=== PATIENT | female | born 1975 | race Caucasian/White ===

== ENCOUNTER 2021-08-18 02:41 | Day surgery (SDC) | payer BC ==
[~2021-08-18] VITALS: Wt 111.8 kg
[~2021-08-18 02:41] MED LIST: ALBU90OI; ASCO500 PO; CALC1.25T PO; CEFD300 PO; CLAR500; CLIN300 PO; CRUTCH4 USE; CYCL10 PO; Colace100 MG PO; DOCU100 PO; FERR325 PO; FOLI1 PO; Ferrous Sulfat325 MG PO; HYDACE5 PO; HYDACE5325 PO; IBUP800 PO; LIDO2L MM; MEDR10 PO; METTREX2.5 PO; MONT10T PO; PSEU120ER PO; PSEU30 PO; QUET100 PO; RXCYCL10 PO; RXHYDACE PO; SULTRIDS PO; TRAZ50 PO
[2021-08-18] MEDS ORDERED: Methotrexa25 MG/1 ML INJ (09:26)
[2021-08-18] MEDS ORDERED: QUETIAPINE FUM200 M7 PO (09:28)
[2021-08-18] MEDS ORDERED: FOLI1 PO (09:28)
[2021-08-18] MEDS ORDERED: DICLOFENAC SOD100 G1 TOP (09:29)
[2021-08-18] MEDS ORDERED: ZOFRAN4 MG PO (09:29)
[2021-08-18] MEDS ORDERED: Hydroxychloroq200 MG PO (09:30)
[2021-08-18] MEDS ORDERED: CITALOPRAM HBR PO (09:31)
== END 2021-08-18 12:17 | disposition home or self-care (01) ==
LOC: ATC 02:41
DX: M06.9 Rheumatoid arthritis, unspecified (principal); J45.909 Unspecified asthma, uncomplicated; Z79.899 Other long term (current) drug therapy; Z88.0 Allergy status to penicillin; Z88.8 Allergy status to other drugs, medicaments and biological substances; Z88.5 Allergy status to narcotic agent
CPT/HCPCS: 96413; 96415; J7050; Q5103

== ENCOUNTER 2021-09-03 00:27 | Day surgery (SDC) | payer BC ==
[~2021-09-03] VITALS: Wt 112.9 kg
[~2021-09-03 00:27] MED LIST changes: +CITALOPRAM HBR PO; +DICLOFENAC SOD100 G1 TOP; +Hydroxychloroq200 MG PO; +Methotrexa25 MG/1 ML INJ; +QUETIAPINE FUM200 M7 PO; +ZOFRAN4 MG PO
== END 2021-09-03 12:10 | disposition home or self-care (01) ==
LOC: ATC 00:27
DX: M06.9 Rheumatoid arthritis, unspecified (principal); J45.909 Unspecified asthma, uncomplicated; Z88.0 Allergy status to penicillin; Z88.8 Allergy status to other drugs, medicaments and biological substances; Z88.5 Allergy status to narcotic agent
CPT/HCPCS: 96413; 96415; A9270; J7050; Q5103

== ENCOUNTER 2022-03-26 02:54 | Day surgery (SDC) | payer BC, OTHER ==
[~2022-03-26 02:54] MED LIST changes: +INFLECTRA100 MG IV
[2022-03-26] MEDS ORDERED: CIPROFLOX-DEXA7.5 ML BOTHEARS (08:22)
--- NOTE | 2022-03-26 08:33 | NUR ---
PT DECLINES HER PRE MEDS THIS MORNING.
== END 2022-03-26 11:10 | disposition home or self-care (01) ==
LOC: ATC 02:54
DX: M06.9 Rheumatoid arthritis, unspecified (principal)
CPT/HCPCS: 96413; 96415; J1745; J7050

== ENCOUNTER 2022-05-21 00:49 | Day surgery (SDC) | payer OTHER ==
[~2022-05-21 00:49] MED LIST changes: +CIPROFLOX-DEXA7.5 ML BOTHEARS
[2022-05-26 04:07] LABS: QUANTIFERON MITOGEN VALUE >10.00 IU/mL (.); QUANTIFERON NIL VALUE 0.06 IU/mL (.); QUANTIFERON TB1 AG VALUE 0.09 IU/mL (.); QUANTIFERON TB2 AG VALUE 0.07 IU/mL (.); QUANTIFERON-TB GOLD PLUS Negative (Negative)
== END 2022-05-21 11:50 | disposition home or self-care (01) ==
LOC: ATC 00:49
PROVIDERS: Internal Medicine Rheumatology
DX: M06.9 Rheumatoid arthritis, unspecified (principal)
CPT/HCPCS: 86480; 96413; 96415; A9270; J7050; Q5103

== ENCOUNTER 2022-07-16 00:11 | Day surgery (SDC) | payer BC, OTHER | END 2022-07-16 11:54 | disposition home or self-care (01) | LOC: ATC 00:11 | DX: M06.9 Rheumatoid arthritis, unspecified (principal); M54.2 Cervicalgia; J45.909 Unspecified asthma, uncomplicated; Z88.0 Allergy status to penicillin; Z88.5 Allergy status to narcotic agent; Z88.8 Allergy status to other drugs, medicaments and biological substances; Z79.899 Other long term (current) drug therapy | CPT/HCPCS: 96413; 96415; A9270; J7050; Q5103 ==

== ENCOUNTER 2022-09-10 03:49 | Day surgery (SDC) | payer OTHER ==
[~2022-09-10] VITALS: Wt 109.6 kg
[2022-09-10 08:42] LABS: BASOPHILS ABSOLUTE AUTO 0.03 K/mm3 (0.00-0.23); BASOPHILS PERCENT AUTO 1 % (0-2); EOSINOPHILS ABSOLUTE AUTO 0.17 K/mm3 (0.00-0.68); EOSINOPHILS PERCENT AUTO 3 % (0-6); Hematocrit 39.2 % (33.0-51.0); Hemoglobin 13.7 g/dL (11.5-16.0); IMMATURE GRAN ABSOLUTE AUTO 0.01 K/mm3 (0.00-0.10); IMMATURE GRAN PERCENT AUTO 0 % (0-1); LYMPHOCYTES ABSOLUTE AUTO 1.69 K/mm3 (0.84-5.20); LYMPHOCYTES PERCENT AUTO 30 % (21-46); MONOCYTES ABSOLUTE AUTO 0.23 K/mm3 (0.16-1.47); MONOCYTES PERCENT AUTO 4 % (4-13); Mean Corpuscular HGB 29.3 pg (26.0-34.0); Mean Corpuscular HGB Conc 34.9 g/dL (31.5-36.5); Mean Corpuscular Volume 84 fL (80-100); Mean Platelet Volume 10.8 fL (9.1-12.4); NEUTROPHILS ABSOLUTE AUTO 3.53 K/mm3 (1.96-9.15); NEUTROPHILS PERCENT AUTO 62 % (41-73); Platelet Count 287 K/mm3 (150-400); RDW Coefficient Variation 12.8 % (11.7-14.2); RDW Standard Deviation 38.8 fL (35.1-46.3); Red Blood Cell Count 4.67 M/mm3 (3.80-5.20); White Blood Cell Count 5.66 K/mm3 (4.00-11.30)
[2022-09-10 09:01] LABS: Albumin, Blood 3.3 g/dL (3.4-5.0); Albumin/Globulin Ratio 0.7 (0.8-1.8); Bilirubin, Total 0.5 mg/dL (0.1-1.0); Bun/Creatinine Ratio 6.8 (12.0-20.0); C-REACTIVE PROTEIN, EXT RANGE 1.39 mg/dL (0.000-0.300); Calcium, Blood 8.7 mg/dL (8.5-10.1); Creatinine, Blood 0.88 mg/dL (0.40-1.00); Globulin, Blood 4.9 g/dL (2.2-4.0); Potassium, Blood 4.2 mmol/L (3.5-5.5); Total Protein, Blood 8.2 g/dL (6.4-8.2)
== END 2022-09-10 10:39 | disposition home or self-care (01) ==
LOC: ATC 03:49
PROVIDERS: Internal Medicine Rheumatology
DX: M05.79 Rheumatoid arthritis with rheumatoid factor of multiple sites without organ or systems involvement (principal); D84.821 Immunodeficiency due to drugs; J45.909 Unspecified asthma, uncomplicated; Z79.631 Long term (current) use of antimetabolite agent; Z88.0 Allergy status to penicillin; Z88.8 Allergy status to other drugs, medicaments and biological substances; Z88.5 Allergy status to narcotic agent; Z79.620 Long term (current) use of immunosuppressive biologic
CPT/HCPCS: 80053; 85025; 85651; 86140; 96413; 96415; A9270; J7050; Q5103

== ENCOUNTER 2022-11-05 01:19 | Day surgery (SDC) | payer OTHER ==
[~2022-11-05] VITALS: Wt 111.9 kg
== END 2022-11-05 17:30 | disposition home or self-care (01) ==
LOC: ATC 01:19
DX: M05.79 Rheumatoid arthritis with rheumatoid factor of multiple sites without organ or systems involvement (principal)
CPT/HCPCS: 96413; 96415; A9270; J7050; Q5103

== ENCOUNTER 2023-05-13 01:07 | Day surgery (SDC) | payer OTHER ==
[~2023-05-13 01:07] MED LIST changes: +HYDR1TAB94 PO; +PRED20 PO
[2023-05-13 08:06] VITALS: BP 162/91
== END 2023-05-13 10:49 | disposition home or self-care (01) ==
LOC: ATC 01:07
DX: M05.79 Rheumatoid arthritis with rheumatoid factor of multiple sites without organ or systems involvement (principal); M54.2 Cervicalgia
CPT/HCPCS: 96413; 96415; J7050; Q5103

== ENCOUNTER 2023-05-27 03:04 | Day surgery (SDC) | payer OTHER ==
[2023-05-27 08:35] VITALS: BP 148/81
[2023-05-27 09:56] LABS: BASOPHILS ABSOLUTE AUTO 0.03 K/mm3 (0.00-0.23); BASOPHILS PERCENT AUTO 1 % (0-2); EOSINOPHILS ABSOLUTE AUTO 0.12 K/mm3 (0.00-0.68); EOSINOPHILS PERCENT AUTO 3 % (0-6); Hematocrit 40.3 % (33.0-51.0); Hemoglobin 13.6 g/dL (11.5-16.0); IMMATURE GRAN ABSOLUTE AUTO 0.01 K/mm3 (0.00-0.10); IMMATURE GRAN PERCENT AUTO 0 % (0-1); LYMPHOCYTES ABSOLUTE AUTO 1.24 K/mm3 (0.84-5.20); LYMPHOCYTES PERCENT AUTO 35 % (21-46); MONOCYTES ABSOLUTE AUTO 0.16 K/mm3 (0.16-1.47); MONOCYTES PERCENT AUTO 5 % (4-13); Mean Corpuscular HGB 30.6 pg (26.0-34.0); Mean Corpuscular HGB Conc 33.7 g/dL (31.5-36.5); Mean Corpuscular Volume 91 fL (80-100); NEUTROPHILS ABSOLUTE AUTO 2.02 K/mm3 (1.96-9.15); NEUTROPHILS PERCENT AUTO 56 % (41-73); Platelet Count 212 K/mm3 (150-400); RDW Coefficient Variation 13.4 % (11.7-14.2); RDW Standard Deviation 45.3 fL (35.1-46.3); Red Blood Cell Count 4.45 M/mm3 (3.80-5.20); White Blood Cell Count 3.58 K/mm3 (4.00-11.30)
[2023-05-27 10:01] LABS: C-REACTIVE PROTEIN, EXT RANGE 1.16 mg/dL (0.000-0.300)
[2023-05-27 10:03] LABS: Albumin, Blood 3.6 g/dL (3.4-5.0); Albumin/Globulin Ratio 0.8 (0.8-1.8); Bilirubin, Total 0.4 mg/dL (0.1-1.0); Calcium, Blood 8.8 mg/dL (8.5-10.1); Creatinine, Blood 0.99 mg/dL (0.40-1.00); Globulin, Blood 4.6 g/dL (2.2-4.0); Potassium, Blood 3.7 mmol/L (3.5-5.5); Total Protein, Blood 8.2 g/dL (6.4-8.2)
[2023-05-31 08:14] LABS: QUANTIFERON MITOGEN VALUE >10.00 IU/mL (.); QUANTIFERON NIL VALUE 0.09 IU/mL (.); QUANTIFERON TB1 AG VALUE 0.09 IU/mL (.); QUANTIFERON-TB GOLD PLUS Negative (Negative)
== END 2023-05-27 11:15 | disposition home or self-care (01) ==
LOC: ATC 03:04
PROVIDERS: Internal Medicine Rheumatology
DX: M05.79 Rheumatoid arthritis with rheumatoid factor of multiple sites without organ or systems involvement (principal); Z79.899 Other long term (current) drug therapy
CPT/HCPCS: 80053; 85025; 85651; 86140; 86480; 96413; 96415; J7050; Q5103

== ENCOUNTER 2025-07-27 00:36 | Day surgery (SDC) | payer OTHER ==
[~2025-07-27] VITALS: Wt 126.3 kg
[2025-07-27 15:03] VITALS: BP 140/91
[2025-07-27 15:45] LABS: BASOPHILS ABSOLUTE AUTO 0.07 K/mm3 (0.00-0.23); BASOPHILS PERCENT AUTO 1 % (0-2); EOSINOPHILS ABSOLUTE AUTO 0.23 K/mm3 (0.00-0.68); EOSINOPHILS PERCENT AUTO 4 % (0-6); Hematocrit 37.1 % (33.0-51.0); Hemoglobin 12.7 g/dL (11.5-16.0); IMMATURE GRAN ABSOLUTE AUTO 0.01 K/mm3 (0.00-0.10); IMMATURE GRAN PERCENT AUTO 0 % (0-1); LYMPHOCYTES ABSOLUTE AUTO 2.28 K/mm3 (0.84-5.20); LYMPHOCYTES PERCENT AUTO 35 % (21-46); MONOCYTES ABSOLUTE AUTO 0.32 K/mm3 (0.16-1.47); MONOCYTES PERCENT AUTO 5 % (4-13); Mean Corpuscular HGB Conc 34.2 g/dL (31.5-36.5); Mean Corpuscular Volume 88 fL (80-100); NEUTROPHILS ABSOLUTE AUTO 3.60 K/mm3 (1.96-9.15); NEUTROPHILS PERCENT AUTO 55 % (41-73); NRBC ABSOLUTE 0.00 K/mm3 (0.00-0.02); NRBC Auto 0.0 /100 WBC (0.0-0.2); Platelet Count 250 K/mm3 (150-400); RDW Coefficient Variation 14.3 % (11.7-14.2); RDW Standard Deviation 45.7 fL (35.1-46.3)
[2025-07-27 16:11] LABS: Alanine Aminotransfer (ALT/SGP 50.0 U/L (12-78); Albumin, Blood 3.9 g/dL (3.4-5.0); Albumin/Globulin Ratio 0.8 (0.8-1.8); Anion Gap 7.0 mmol/L (3-11); Aspartate Aminotrans (AST/SGOT 31.0 U/L (12-37); Bilirubin, Total 0.5 mg/dL (0.1-1.0); Blood Urea Nitrogen 7.0 mg/dL (8-24); CO2, Blood 30.0 mmol/L (21-32); Calcium, Blood 9.5 mg/dL (8.5-10.1); Chloride, Blood 101.0 mmol/L (98-108); Creatinine, Blood 0.92 mg/dL (0.40-1.00); Globulin, Blood 4.7 g/dL (2.2-4.0); Glucose, Blood 134.0 mg/dL (70-99); Potassium, Blood 3.7 mmol/L (3.5-5.5); Sodium, Blood 134.0 mmol/L (136-145); Total Protein, Blood 8.6 g/dL (6.4-8.2)
[2025-07-27 16:16] VITALS: BP 134/89
[2025-07-27 16:34] VITALS: BP 138/73
[2025-07-27 16:51] VITALS: BP 148/91
[2025-07-27 17:06] VITALS: BP 156/88
[2025-07-27 17:24] VITALS: BP 151/101
== END 2025-07-27 17:58 | disposition home or self-care (01) ==
LOC: ATC 00:36
PROVIDERS: Internal Medicine Rheumatology
DX: M05.79 Rheumatoid arthritis with rheumatoid factor of multiple sites without organ or systems involvement (principal); F17.210 Nicotine dependence, cigarettes, uncomplicated; Z79.899 Other long term (current) drug therapy
CPT/HCPCS: 80053; 85025; 96413; 96415; J7050; Q5103

== ENCOUNTER 2025-08-10 07:38 | Day surgery (SDC) | payer OTHER ==
[2025-08-10] VITALS (7 sets, daily range): BP systolic 108–128; BP diastolic 65–77
[~2025-08-10] VITALS: Wt 125.7 kg
== END 2025-08-10 11:34 | disposition home or self-care (01) ==
LOC: ATC 07:38
DX: M05.79 Rheumatoid arthritis with rheumatoid factor of multiple sites without organ or systems involvement (principal); D84.821 Immunodeficiency due to drugs; T45.1X5A Adverse effect of antineoplastic and immunosuppressive drugs, initial encounter; M25.551 Pain in right hip; F17.210 Nicotine dependence, cigarettes, uncomplicated; Z79.60 Long term (current) use of unspecified immunomodulators and immunosuppressants; Z79.631 Long term (current) use of antimetabolite agent; Z79.899 Other long term (current) drug therapy
CPT/HCPCS: 96413; 96415; J7050; Q5103

== ENCOUNTER 2025-09-11 01:12 | Day surgery (SDC) | payer OTHER ==
[~2025-09-11] VITALS: Wt 123.0 kg
[2025-09-11 13:45] VITALS: BP 152/94
== END 2025-09-11 16:21 | disposition home or self-care (01) ==
LOC: ATC 01:12
DX: M06.9 Rheumatoid arthritis, unspecified (principal); D84.821 Immunodeficiency due to drugs; F17.210 Nicotine dependence, cigarettes, uncomplicated; Z88.0 Allergy status to penicillin; Z88.6 Allergy status to analgesic agent; Z88.5 Allergy status to narcotic agent; Z88.8 Allergy status to other drugs, medicaments and biological substances
CPT/HCPCS: 96365; 96366; 96413; 96415; J7050; Q5103

== ENCOUNTER 2025-11-06 09:26 | Day surgery (SDC) | payer OTHER ==
[2025-11-06 15:16] VITALS: BP 153/90
[2025-11-06] MEDS ORDERED: INFLIXIMAB DYYB IV SCH (15:35)
[2025-11-06] MEDS ORDERED: NS IV SCH (15:35)
[2025-11-06 16:18] LABS: BASOPHILS ABSOLUTE AUTO 0.05 K/mm3 (0.00-0.23); BASOPHILS PERCENT AUTO 1 % (0-2); EOSINOPHILS ABSOLUTE AUTO 0.15 K/mm3 (0.00-0.68); EOSINOPHILS PERCENT AUTO 3 % (0-6); Hematocrit 37.0 % (33.0-51.0); Hemoglobin 12.5 g/dL (11.5-16.0); IMMATURE GRAN ABSOLUTE AUTO 0.02 K/mm3 (0.00-0.10); IMMATURE GRAN PERCENT AUTO 0 % (0-1); LYMPHOCYTES ABSOLUTE AUTO 1.72 K/mm3 (0.84-5.20); LYMPHOCYTES PERCENT AUTO 35 % (21-46); MONOCYTES ABSOLUTE AUTO 0.32 K/mm3 (0.16-1.47); MONOCYTES PERCENT AUTO 6 % (4-13); Mean Corpuscular HGB Conc 33.8 g/dL (31.5-36.5); Mean Corpuscular Volume 89 fL (80-100); NEUTROPHILS ABSOLUTE AUTO 2.72 K/mm3 (1.96-9.15); NEUTROPHILS PERCENT AUTO 55 % (41-73); NRBC ABSOLUTE 0.00 K/mm3 (0.00-0.02); NRBC Auto 0.0 /100 WBC (0.0-0.2); Platelet Count 241 K/mm3 (150-400); RDW Coefficient Variation 17.0 % (11.7-14.2); RDW Standard Deviation 54.6 fL (35.1-46.3)
[2025-11-06 16:38] LABS: Alanine Aminotransfer (ALT/SGP 35.0 U/L (12-78); Albumin, Blood 3.7 g/dL (3.4-5.0); Albumin/Globulin Ratio 0.8 (0.8-1.8); Anion Gap 7.0 mmol/L (3-11); Aspartate Aminotrans (AST/SGOT 29.0 U/L (12-37); Bilirubin, Total 0.6 mg/dL (0.1-1.0); Blood Urea Nitrogen 8.0 mg/dL (8-24); CO2, Blood 30.0 mmol/L (21-32); Calcium, Blood 9.2 mg/dL (8.5-10.1); Chloride, Blood 100.0 mmol/L (98-108); Creatinine, Blood 0.84 mg/dL (0.40-1.00); Globulin, Blood 4.5 g/dL (2.2-4.0); Glucose, Blood 88.0 mg/dL (70-99); Potassium, Blood 3.7 mmol/L (3.5-5.5); Sodium, Blood 133.0 mmol/L (136-145); Total Protein, Blood 8.2 g/dL (6.4-8.2)
== END 2025-11-06 18:06 | disposition home or self-care (01) ==
LOC: ATC 09:26
PROVIDERS: Internal Medicine Rheumatology
DX: M05.79 Rheumatoid arthritis with rheumatoid factor of multiple sites without organ or systems involvement (principal); F17.210 Nicotine dependence, cigarettes, uncomplicated
CPT/HCPCS: 36415; 36591; 80053; 85025; 96413; 96415; J7050; Q5103